=== PATIENT | male | born 1945 | race Caucasian/White ===

== ENCOUNTER 2018-05-02 15:42 | Outpatient (RCR) | payer MEDICARE, OTHER, SELFPAY | END 2018-05-11 08:59 | LOC: CR 15:42 | PROVIDERS: PCP Family Medicine; Visit Provider Family Medicine | DX: Z51.89 Encounter for other specified aftercare (principal); I25.2 Old myocardial infarction ==

== ENCOUNTER 2018-05-28 10:00 | Outpatient (RCR) | payer MEDICARE, OTHER, SELFPAY | END 2018-05-29 23:59 | disposition home or self-care (01) | LOC: CR 10:00 | PROVIDERS: PCP Family Medicine; Visit Provider Family Medicine | DX: I25.2 Old myocardial infarction (principal); Z51.89 Encounter for other specified aftercare | CPT/HCPCS: S9472 ==

== ENCOUNTER 2018-06-25 09:00 | Outpatient (RCR) | payer MEDICARE, OTHER, SELFPAY | END 2018-06-29 23:59 | disposition home or self-care (01) | LOC: CR 09:00 | PROVIDERS: PCP Family Medicine; Visit Provider Family Medicine | DX: I25.2 Old myocardial infarction (principal); Z51.89 Encounter for other specified aftercare | CPT/HCPCS: S9472 ==

== ENCOUNTER 2018-07-01 16:00 | Outpatient (REF) | payer MEDICARE, OTHER, SELFPAY ==
[2018-07-02 06:47] LABS: ALT 16 U/L (12-78); AST 16 U/L (15-37); Albumin 3.7 g/dL (3.4-5.0); Alkaline Phosphatase 84 U/L (46-116); Anion Gap 14.3 mmol/L (3-11); BUN 19 mg/dL (7-18); Bilirubin, Total 0.9 mg/dL (0.2-1.0); CO2 20.7 mmol/L (21.0-32.0); CREATININE 0.89 mg/dL (0.70-1.30); Calcium 8.5 mg/dL (8.5-10.1); Chloride 104 mmol/L (98-107); Cholesterol 86 mg/dL (50-200); Glucose 110 mg/dL (70-100); HDL Cholesterol 34 mg/dL (40-60); LDL CHOLESTEROL 40 mg/dL (<100); Potassium 3.6 mmol/L (3.5-5.1); Sodium 139 mmol/L (136-145); Total Protein 6.9 g/dL (6.4-8.2); Triglyceride 139 mg/dL (30-150)
[2018-07-03 11:48] LABS: Hepatitis C Ab w Rflx HCV PCR Negative (NEGAT)
== END 2018-07-01 16:20 ==
LOC: NCHCN 16:00
PROVIDERS: PCP Family Medicine; Visit Provider Internal Medicine
DX: R19.7 Diarrhea, unspecified (principal); E78.5 Hyperlipidemia, unspecified; I10 Essential (primary) hypertension
CPT/HCPCS: 80053; 80061; 83721; 86803

== ENCOUNTER 2018-07-21 13:06 | Outpatient (RCR) | payer MEDICARE, OTHER, SELFPAY | END 2018-07-29 23:59 | disposition home or self-care (01) | LOC: CR 13:06 | PROVIDERS: PCP Family Medicine; Visit Provider Family Medicine | DX: I25.2 Old myocardial infarction (principal); Z51.89 Encounter for other specified aftercare | CPT/HCPCS: S9472 ==

== ENCOUNTER 2018-08-22 08:00 | Outpatient (RCR) | payer MEDICARE, OTHER, SELFPAY | END 2018-08-29 23:59 | disposition home or self-care (01) | LOC: CR 08:00 | PROVIDERS: PCP Family Medicine; Visit Provider Family Medicine | DX: I25.2 Old myocardial infarction (principal); Z51.89 Encounter for other specified aftercare | CPT/HCPCS: S9472 ==

== ENCOUNTER 2019-12-28 09:37 | Outpatient (REF) | payer MEDICARE, OTHER, SELFPAY ==
[2019-12-28 23:06] LABS: ALT 37 U/L (16-63); AST 22 U/L (15-37); Albumin 3.7 g/dL (3.4-5.0); Alkaline Phosphatase 72 U/L (46-116); Anion Gap 7.9 mmol/L (3-11); BUN 17 mg/dL (7-18); Bilirubin, Total 1.3 mg/dL (0.2-1.0); CO2 27.1 mmol/L (21.0-32.0); CREATININE 0.83 mg/dL (0.70-1.30); Calcium 8.7 mg/dL (8.5-10.1); Calculated LDL 74 mg/dL (<100); Chloride 106 mmol/L (98-107); Cholesterol 138 mg/dL (<200); Glucose 85 mg/dL (74-106); HDL Cholesterol 52 mg/dL (40-60); Potassium 4.2 mmol/L (3.5-5.1); Sodium 141 mmol/L (136-145); Triglyceride 64 mg/dL (<150)
[2019-12-29 00:10] LABS: Total Protein 6.5 g/dL (6.4-8.2)
[2019-12-29 17:32] LABS: PSA, Screening 1.6 ng/mL (0.0-6.5)
== END 2019-12-28 09:57 ==
LOC: NCHCN 09:37
PROVIDERS: PCP Family Medicine; Visit Provider Family Medicine
DX: I10 Essential (primary) hypertension (principal); E78.5 Hyperlipidemia, unspecified; Z12.5 Encounter for screening for malignant neoplasm of prostate
CPT/HCPCS: 80053; 80061; 84153

== ENCOUNTER → 2020-10-28 11:27 | Outpatient (BNVA) | payer MEDICARE, OTHER, SELFPAY | PROVIDERS: PCP Family Medicine; Referring Provider Family Medicine; Visit Provider Physical Therapy Assistant | DX: Z12.11 Encounter for screening for malignant neoplasm of colon (principal); I10 Essential (primary) hypertension ==

== ENCOUNTER 2021-01-09 02:13 | Outpatient (CLI) | payer MEDICARE, OTHER, SELFPAY ==
[2021-01-09 11:06] LABS: Source Nasal/Nares
[2021-01-09 15:19] LABS: COVID-19 PCR Negative (Negative)
== END 2021-01-09 02:14 | disposition home or self-care (01) ==
LOC: LBO 02:13
PROVIDERS: PCP Family Medicine; Visit Provider Surgery
DX: Z01.818 Encounter for other preprocedural examination (principal); Z20.822 Contact with and (suspected) exposure to COVID-19
CPT/HCPCS: 87635

== ENCOUNTER 2021-01-11 09:45 | Day surgery (SDC) | payer MEDICARE, OTHER, SELFPAY ==
--- NOTE | 2021-01-11 06:45 | W.PREOPHP ---
Date of service: 01/11/21 Time of Service: 10:59 Assessment and Plan Assessment and plan (1) Encounter for colorectal cancer screening: Status: Acute Assessment and plan: The patient is here for Colonoscopy pre-op. His last screening was 10+ years ago, results unknown. He has no family history of colon cancer. He has not had any bowel habit changes. -Discussed colonoscopy bowel prep as well as the procedure. Discussed possible complications of the procedure to include bleeding, pain, perforation, missed small lesion/polyp, sore throat, aspiration and adverse reaction to the medications. Questions were answered to patient?s satisfaction. No guarantees were implied or given. 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 His last screening was reported to have been 10+ years ago in [place]. He denies a family history of colon cancer. He denies any changes in bowel habits including bloody or black tarry stools, abdominal pain, diarrhea or constipation. He denies constitutional symptoms. Denies use of marijuana or any other recreational or illegal drugs. He denies chest pain, palpitations, dyspnea or dyspnea with exertion. He has not used his nitro since 2019 at the time of his last NV. He denies prior history or family history of adverse reactions or complications with anesthesia. The patient denies any history of stroke, seizures, bleeding or clotting disorders. He has implanted metal in his left knee. There have been no changes in his health since he was seen. Review of Systems Cardiovascular Cardiovascular: Denies chest pain, Denies chest pain at rest, Denies irregular heart rhythm, Denies dyspnea and Denies dyspnea on exertion Respiratory Respiratory: Denies cough, Denies dyspnea and Denies dyspnea on exertion Gastrointestinal Gastrointestinal: Reports as per HPI Genitourinary Genitourinary: Denies dysuria, Denies urinary incontinence and Denies urinary urgency Endocrine Endocrine: Reports system reviewed and no additional complaints, except as documented Hematologic/Lymphatic Hematologic/Lymphatic: Denies easy bruising and Denies lymphadenopathy [facility] Medical History Actinic keratosis CAD (coronary artery disease) Diarrhea Erectile dysfunction Hearing loss, bilateral History of cigarette smoking History of diverticulosis History of non-ST elevation myocardial infarction (NSTEMI) f/u with cardiology 09/2020 Dr. Golden @ [facility] [place] Hydrocele, left Hyperlipidemia Hypertension Osteoarthritis Pain, joint, knee, right Surgical History (Updated 01/11/21 @ 09:55 by Juaquin Sharp) History of cardiac catheterization x1 History of colonoscopy (~08/24/03) Done at [facility] in [place], [place] History of knee replacement procedure of left knee Hx of tonsillectomy Social History Smoking/Tobacco Use Status: Never Smoking risk assessment performed?: Yes Alcohol Intake: current Alcohol Intake frequency: 0-2 drinks per day Alcohol type: beer and wine Drug use: Never Substance use type: does not use Do you feel safe at home: Yes Do you feel safe in your relationship?: Yes Meds Allergies and Home Medications Allergies Allergy/AdvReac Type Severity Reaction Status Date / Time avocado Allergy Intermediate GI upset Verified 01/11/21 09:58 Home Medications Medication Instructions Recorded Confirmed Type cholecalciferol (vitamin D3) 400 unit PO DAILY tab-cap 04/22/15 01/10/21 History [Vitamin D] aspirin 81 mg tablet,delayed 81 mg PO DAILY 10/13/20 01/10/21 History release atorvastatin 40 mg tablet 40 mg PO DAILY 10/13/20 01/11/21 History lisinopril 5 mg tablet 5 mg PO DAILY 10/13/20 01/11/21 History nitroglycerin 0.4 mg sublingual 0.4 mg SUBLINGUAL Q5M PRN 10/13/20 01/10/21 History tablet sildenafil 100 mg tablet 100 mg PO DAILY PRN 10/13/20 01/10/21 History Exam Const General: healthy appearing and comfortable Resp Effort & Inspection: normal respiratory effort Auscultation: clear to auscultation bilaterally Cardio Rate: regular rate Rhythm: regular rhythm Heart Sounds: no click, no gallops and no murmurs
--- NOTE | 2021-01-11 06:47 | W.COLOREPORT ---
Colonoscopy Report Date of procedure: 01/11/21 Pre-op diagnosis general: Colon Cancer Screening Post-op diagnosis procedure note: other (2 polyps and diverticulosis) Procedure: Colonoscopy with polypectomy Surgeon: Janell Levy Anesthesia Type: General:No Airway ([place] Taylor, ROXIE) Estimated blood loss (mL): 3 Pathology: other (cecal polyp, descending polyp) Complications: None Disposition: same day Indications: The patient is here for Colonoscopy pre-op. His last screening was 10+ years ago, results unknown. He has no family history of colon cancer. He has not had any bowel habit changes. -Discussed colonoscopy bowel prep as well as the procedure. Discussed possible complications of the procedure to include bleeding, pain, perforation, missed small lesion/polyp, sore throat, aspiration and adverse reaction to the medications. Questions were answered to patient?s satisfaction. No guarantees were implied or given. Prep: Miralax/Dulcolax Procedure Start Time: 11:10 Procedure End Time: 11:27 Retraction Time: 10 minutes Findings: 2 small sessile polyps diverticulosis Procedure Description: After informed consent was obtained the patient was taken to the procedure room and placed in a left decubitous position. Monitors were applied and a time out was done. The patients name, date of , procedure, allergies to medications and metal in their body was reviewed. The patient was then sedated. Once sedated and comfortable a rectal exam was done. External exam was normal. Internal exam revealed a normal sphincter tone and no palpable masses. The prostate felt smooth and slightly enlarged. The scope was then introduced and retro-flexed. No internal hemorrhoids, polyps or masses were identified on retro-flexion. The scope was then advanced to the cecum without difficulty. The ileocecal vlave and appendiceal orifice were identified. The prep was adequate. The scope was then slowly retracted over 10 minutes back into the rectum. Polyps were removed in the cecum and descending colon with cold forceps. There was moderate descending and sigmoid diverticulosis noted. The scope was removed and the patient was woken up and taken back to Same day surgery in stable condition. The patient tolerated the procedure well and there were no immediate complications. Follow up: The patient should follow up in 3-5 years unless they develop changes in bowel habits or other new gastrointestinal complaints.
--- NOTE | 2021-01-11 06:47 | W.PM.DSUDISC ---
Discharge Plan Disposition Patient Disposition: HOME Condition: Good Discharge Details Reason For Visit: Colonoscopy Attending Provider: Janell Levy Primary Care Provider: Amy Arango Home Meds and New Rx's Prescriptions: Continued cholecalciferol (vitamin D3) [Vitamin D3] 400 UNIT capsule 400 unit PO DAILY RF: 0 atorvastatin 40 mg tablet 40 mg PO DAILY RF: 0 lisinopril 5 mg tablet 5 mg PO DAILY RF: 0 sildenafil [Viagra] 100 mg tablet 100 mg PO DAILY PRNRF: 0 nitroglycerin [Nitrostat] 0.4 mg tablet, sublingual 0.4 mg sublingual Q5M PRNRF: 0 aspirin 81 mg tablet,delayed release (DR/EC) 81 mg PO DAILY RF: 0 Discharge Instructions Instructions: Diverticulosis (DC), Colorectal Polyps (DC) Additional Instructions: Findings: 2 small polyps diverticulosis Follow up: 3-5 years Please call if you develop: fevers >101.5 Nausea or Vomiting Abdominal pain that is not transient Rectal bleeding that is more then a tbsp A hard abdomen and inability to pass gas DAY SURGERY UNIT POST ENDOSCOPY INSTRUCTIONS Instructions for everyone who is given Anesthesia: For your safety, please do the following for the next 24 Hours: a. Do not drive or operate dangerous equipment b. Do not drink alcohol beverages or use any recreational drugs for the first 24 hours or while taking pain medications. The medications in your body may have a reaction that can be dangerous. c. Do not make any important decisions or sign any important papers 1. Generally there are no restrictions on your activity after a day or so has gone by, but you may feel a bit fatigued for a few days. 2. After you arrive home you may have a light meal and return to a normal diet as you can tolerate it without feeling sick to your stomach. 3. After surgery, you may feel pain or discomfort. This should be only transient, but if it persists please contact your doctor. 4. If there are any questions regarding the findings of your procedure, please feel free to contact your doctor. 6. If you are unable to contact your doctor with a problem, contact the hospital at [phone]. 7. Continue all your regular medications unless directed otherwise. I understand the above instructions and have no questions. Signature of Patient or Responsible Adult Escort Date/Time Name of Responsible Adult Escort Signature of Nurse Date/Time Activity:: Activity as Tolerated Diet:: high fiber diet Discharge Orders Discharge Orders: Discharge Order (Routine); Ordered 01/11/21 Ordered By: Janell Levy DS: Diagnosis Discharge Diagnosis (1) Encounter for colorectal cancer screening: Status: Acute
[2021-01-11 09:54] VITALS: BP 119/67; PULSE 65; RESP 16; TEMP 36.2; O2SAT 98
--- NOTE | 2021-01-11 10:14 | ANES.PREOP_ITS ---
General Info Date of Service Date Performed: 01/11/21 Height: 5 ft 6 in Weight: 82.5 kg Body Mass Index (BMI): 29.3 Surgical Procedure: Operation Date: 01/11/21 11:05 Proposed Procedures Side Surgeon p Colonoscopy Janell Levy MD Meds Allergies and Home Medications Allergies Allergy/AdvReac Type Severity Reaction Status Date / Time avocado Allergy Intermediate GI upset Verified 01/11/21 09:58 Home Medication Medication Instructions Recorded cholecalciferol (vitamin D3) 400 unit PO DAILY tab-cap 04/22/15 [Vitamin D] aspirin 81 mg tablet,delayed 81 mg PO DAILY 10/13/20 release atorvastatin 40 mg tablet 40 mg PO DAILY 10/13/20 lisinopril 5 mg tablet 5 mg PO DAILY 10/13/20 nitroglycerin 0.4 mg sublingual 0.4 mg SUBLINGUAL Q5M PRN 10/13/20 tablet sildenafil 100 mg tablet 100 mg PO DAILY PRN 10/13/20 Current Visit Medications: Current Medications Generic Name Dose Route Start Last Admin Trade Name Reyq PRN Reason Stop Dose Admin Hyoscyamine Sulfate 0.125 mg 01/11/21 06:48 Hyoscyamine 0.125 Mg Sl/Oral/Chew SL DIRECTED PRN Ringer's Solution 1,000 mls @ 80 mls/hr 01/11/21 06:00 IV 01/29/21 23:59 [facility]ION [facility] IV Miscellaneous Supplies 1 each 01/11/21 06:00 Iv Access IV 01/29/21 23:59 DIRECTED MICHELLE Ondansetron HCl 4 mg 01/11/21 06:48 Ondansetron 4 Mg/2 Ml Vial IVP Q4H PRN PRN Nausea / Vomiting Sodium Chloride 0 ml 01/11/21 06:00 Normal Saline Flush 10 Ml Syr IV 01/29/21 23:59 PRN PRN Sodium Chloride 0 ml 01/11/21 06:00 Normal Saline 10 Ml Vial IJ 01/29/21 23:59 DIRECTED PRN Sterile Water 0 ml 01/11/21 06:00 Water,Injection,Sterile 10 Ml Vial IJ 01/29/21 23:59 DIRECTED PRN PFSH Active Problems Active Problems: Problem Status Onset Code Sensorineural hearing loss of both ears H90.3 Encounter for colorectal cancer screening Z12.11, Z12.12 Medical History Medical History Actinic keratosis CAD (coronary artery disease) Diarrhea Erectile dysfunction Hearing loss, bilateral History of cigarette smoking History of diverticulosis History of non-ST elevation myocardial infarction (NSTEMI) f/u with cardiology 09/2020 Dr. Golden @ [facility] Hydrocele, left Hyperlipidemia Hypertension Osteoarthritis Pain, joint, knee, right Surgical History Surgical History (Updated 01/11/21 @ 09:55 by Juaquin Shapr) History of cardiac catheterization x1 History of colonoscopy (~08/24/03) Done at [facility] in [place], [place] History of knee replacement procedure of left knee Hx of tonsillectomy Tobacco Smoking/Tobacco Use Status: Never Alcohol Alcohol Intake: current Alcohol intake frequency: 0-2 drinks per day Alcohol type: beer and wine Substance Use Substance use: Never Substance use type: does not use Vital Signs and Lab Results Vital Signs Most Recent Vital Signs in EMR: Most Recent Vital Signs Temp Pulse Resp BP Pulse Ox 36.2 C L 65 16 119/67 98 01/11/21 09:54 01/11/21 09:54 01/11/21 09:54 01/11/21 09:54 01/11/21 09:54 Lab Results Blood Type / Crossmatch: No Data to Display Complete Blood Count: No Data to Display Complete Metabolic Panel: No Data to Display Liver Function Panel: No Data to Display Coagulation Panel: No Data to Display Cardiac Panel: No Data to Display Arterial Blood Gas: No Data to Display Venous Blood Gas: No Data to Display Pancreas Panel: No Data to Display Thyroid Panel: No Data to Display Infectious Disease: Coronavirus (COVID-19)(PCR) Negative (Negative) 01/09/21 09:42 01/09/21 Coronavirus 2019 Source Nasal/Nares 01/09/21 09:42 01/09/21 Blood Cultures: No Data to Display Toxicology Panel: No Data to Display Imaging and Studies Imaging and Studies Cardiac Catheterization Summary: 2 stents LAD 2019 Anesthesia Assessment and Plan Anesthesia History Personal History: No History of Anesthesia Complications Family History: No Family History of Anesthesia Complications Exercise Tolerance Exercise Tolerance: Metabolic Equivalents>4 Pertinent Negatives Pertinent Negatives: No Symptoms of GERD, No Major Cardiovascular Symptoms or Complaints, No Major Pulmonary Symptoms or Complaints and No History of CVA/TIA Cardiac & Pulmonary Exam Cardiac Exam: Normal S1/S2 Heart Sounds Pulmonary Exam: Clear Bilateral Breath Sounds Airway Exam Known Difficult Airway: No Mallampati Class: 2 Mouth Opening: Normal (> 3cm) Thyromental Distance: Greater than 3 cm Neck Range of Motion: Full ROM Neck Circumference: Normal Teeth Condition: Normal Dentition Tooth Numberin. Gold tooth/filling ASA Classification ASA Score: ASA 3 Emergency Case?: No NPO Status NPO Status: NPO Clears >2 hours, Solids >8 hours Anesthesia Plan Resuscitation Status: Full Code Anesthesia Technique: General Anesthesia Airway Planned: Natural Airway Monitors Used: Standard Monitors
[2021-01-11] MEDS: Lactated Ringers 1,000 ML 80 ML IV (10:20)
--- NOTE | 2021-01-11 10:20 | W.ANESPRE ---
General Info Date of Service Date Performed: 01/11/21 Height: 5 ft 6 in Weight: 82.5 kg Body Mass Index (BMI): 29.3 Surgical Procedure: Operation Date: 01/11/21 11:05 Proposed Procedures Side Surgeon p Colonoscopy Janell Levy MD Meds Allergies and Home Medications Allergies Allergy/AdvReac Type Severity Reaction Status Date / Time avocado Allergy Intermediate GI upset Verified 01/11/21 09:58 Home Medication Medication Instructions Recorded cholecalciferol (vitamin D3) 400 unit PO DAILY tab-cap 04/22/15 [Vitamin D] aspirin 81 mg tablet,delayed 81 mg PO DAILY 10/13/20 release atorvastatin 40 mg tablet 40 mg PO DAILY 10/13/20 lisinopril 5 mg tablet 5 mg PO DAILY 10/13/20 nitroglycerin 0.4 mg sublingual 0.4 mg SUBLINGUAL Q5M PRN 10/13/20 tablet sildenafil 100 mg tablet 100 mg PO DAILY PRN 10/13/20 Current Visit Medications: Current Medications Generic Name Dose Route Start Last Admin Trade Name Reyq PRN Reason Stop Dose Admin Hyoscyamine Sulfate 0.125 mg 01/11/21 06:48 Hyoscyamine 0.125 Mg Sl/Oral/Chew SL DIRECTED PRN Ringer's Solution 1,000 mls @ 80 mls/hr 01/11/21 06:00 IV 01/29/21 23:59 INFUSION [facility] IV Miscellaneous Supplies 1 each 01/11/21 06:00 Iv Access IV 01/29/21 23:59 DIRECTED MICHELLE Ondansetron HCl 4 mg 01/11/21 06:48 Ondansetron 4 Mg/2 Ml Vial IVP Q4H PRN PRN Nausea / Vomiting Sodium Chloride 0 ml 01/11/21 06:00 Normal Saline Flush 10 Ml Syr IV 01/29/21 23:59 PRN PRN Sodium Chloride 0 ml 01/11/21 06:00 Normal Saline 10 Ml Vial IJ 01/29/21 23:59 DIRECTED PRN Sterile Water 0 ml 01/11/21 06:00 Water,Injection,Sterile 10 Ml Vial IJ 01/29/21 23:59 DIRECTED PRN PFSH Active Problems Active Problems: Problem Status Onset Code Sensorineural hearing loss of both ears H90.3 Encounter for colorectal cancer screening Z12.11, Z12.12 Medical History Medical History Actinic keratosis CAD (coronary artery disease) Diarrhea Erectile dysfunction Hearing loss, bilateral History of cigarette smoking History of diverticulosis History of non-ST elevation myocardial infarction (NSTEMI) f/u with cardiology 09/2020 Dr. Golden @ [facility] Hydrocele, left Hyperlipidemia Hypertension Osteoarthritis Pain, joint, knee, right Surgical History Surgical History (Updated 01/11/21 @ 09:55 by Juaquin Sharp) History of cardiac catheterization x1 History of colonoscopy (~08/24/03) Done at [facility] in [place], [place] History of knee replacement procedure of left knee Hx of tonsillectomy Tobacco Smoking/Tobacco Use Status: Never Alcohol Alcohol Intake: current Alcohol intake frequency: 0-2 drinks per day Alcohol type: beer and wine Substance Use Substance use: Never Substance use type: does not use Vital Signs and Lab Results Vital Signs Most Recent Vital Signs in EMR: Most Recent Vital Signs Temp Pulse Resp BP Pulse Ox 36.2 C L 65 16 119/67 98 01/11/21 09:54 01/11/21 09:54 01/11/21 09:54 01/11/21 09:54 01/11/21 09:54 Lab Results Blood Type / Crossmatch: No Data to Display Complete Blood Count: No Data to Display Complete Metabolic Panel: No Data to Display Liver Function Panel: No Data to Display Coagulation Panel: No Data to Display Cardiac Panel: No Data to Display Arterial Blood Gas: No Data to Display Venous Blood Gas: No Data to Display Pancreas Panel: No Data to Display Thyroid Panel: No Data to Display Infectious Disease: Coronavirus (COVID-19)(PCR) Negative (Negative) 01/09/21 09:42 01/09/21 Coronavirus 2019 Source Nasal/Nares 01/09/21 09:42 01/09/21 Blood Cultures: No Data to Display Toxicology Panel: No Data to Display Anesthesia Assessment and Plan Anesthesia History Personal History: No History of Anesthesia Complications Family History: No Family History of Anesthesia Complications Airway Exam Known Difficult Airway: No Mallampati Class: 2 Mouth Opening: Normal (> 3cm) Thyromental Distance: Greater than 3 cm Neck Range of Motion: Full ROM Neck Circumference: Normal Teeth Condition: Normal Dentition
[2021-01-11 10:31] VITALS: BMI 29.3
--- NOTE | 2021-01-11 11:16 | BOWEL_PTH ---
PATIENT: Michael Smith LOC: [facility] U#:[id number] AGE/SX: 75/M ROOM: RE01/11/[address]: Janell Levy MD : 1945 BED: DIS: 01/11/2021 SPEC #: [id number] RECD: 01/11/21 12:56 STATUS: MURPHY REQ #: [id number] HAZEL: 01/11/21 11:[address]: Janell Levy DEPT: Surgical Specimen RECD BY: Bettye Altman ENTERED: 01/11/21 12:57 SP TYPE: Bowel OTHR DR: Amy Arango Tissues: 1 - BIOPSY BOWEL 2 - BIOPSY BOWEL Procedures: GROSS AND MICRO LEVEL 4 Comments: [id number]
[2021-01-11 11:42] VITALS: BP 104/53; PULSE 83; RESP 16; TEMP 36.6; O2SAT 95
[2021-01-11 12:20] VITALS: BP 104/53; PULSE 64; RESP 16; TEMP 36.2; O2SAT 97
--- NOTE | 2021-01-11 12:47 | W.ANESPOSTOP ---
Postoperative Evaluation Date, Time and Location Date Performed: 01/11/21 Time Performed: 12:47 Patient Location: Day Surgery Unit Vital Signs Most Recent Imported Vital Signs: Most Recent Vital Signs Temp Pulse Resp BP Pulse Ox 36.2 C L 64 16 104/53 L 97 01/11/21 12:20 01/11/21 12:20 01/11/21 12:20 01/11/21 12:20 01/11/21 12:20 Pain Score Most Recent Pain Score: Most Recent Pain Score Pain Level 2 01/11/21 12:20 Assessment Mental Status: Awake (Alert & Oriented to Patient Baseline) Airway and Respiratory Function: Patent airway with normal (patient baseline) respiratory exam Cardiovascular Function: Hemodynamically Stable Hydration Status: Adequately Hydrated Nausea & Vomiting: No Nausea or Vomiting Pain: Pt. Denies Any Pain Peripheral Nerve Block: Patient did not receive a nerve block
== END 2021-01-11 12:56 | disposition home or self-care (01) ==
LOC: SUR 09:46
PROVIDERS: PCP Family Medicine; Visit Provider Surgery
PROC: 0DJD8ZZ Inspection of Lower Intestinal Tract, Via Natural or Artificial Opening Endoscopic (ICD-10-PCS; CPT 45378; principal; 2021-01-11 11:00)
DX: Z12.11 Encounter for screening for malignant neoplasm of colon (principal); I10 Essential (primary) hypertension; I25.10 Atherosclerotic heart disease of native coronary artery without angina pectoris; D12.0 Benign neoplasm of cecum; K57.30 Diverticulosis of large intestine without perforation or abscess without bleeding; D12.4 Benign neoplasm of descending colon
CPT/HCPCS: 45380; 88305; J2001

== ENCOUNTER 2021-02-13 08:58 | Outpatient (REF) | payer MEDICARE, OTHER, SELFPAY ==
[2021-02-13 16:14] LABS: HCT 44.5 % (40.0-50.0); HGB 14.8 g/dL (13.5-17.5); MCH 30.3 pg (27.0-33.0); MCHC 33.3 % (32.0-36.0); MPV 11.9 fL (8.0-11.0); Platelet Count 288 10^3/uL (130-400); RBC 4.89 10^6/uL (4.36-5.78); RDW 12.7 % (11.8-14.1); RDW-SD 42.5 fL; WBC 7.44 10^3/uL (4.4-10.8)
[2021-02-13 17:30] LABS: ALT 32 U/L (16-63); AST 20 U/L (15-37); Albumin 3.8 g/dL (3.4-5.0); Alkaline Phosphatase 71 U/L (46-116); Anion Gap 8.4 mmol/L (3-11); BUN 15 mg/dL (7-18); Bilirubin, Total 0.9 mg/dL (0.2-1.0); CO2 29.6 mmol/L (21.0-32.0); CREATININE 0.9 mg/dL (0.70-1.30); Calcium 8.9 mg/dL (8.5-10.1); Calculated LDL 78 mg/dL (<100); Chloride 106 mmol/L (98-107); Cholesterol 149 mg/dL (<200); Glucose 91 mg/dL (74-106); HDL Cholesterol 58 mg/dL (40-60); Potassium 4.3 mmol/L (3.5-5.1); Sodium 144 mmol/L (136-145); Total Protein 6.7 g/dL (6.4-8.2); Triglyceride 68 mg/dL (<150)
[2021-02-13 19:34] LABS: Vitamin D 25 Total 32.3 ng/mL (30-100)
== END 2021-02-13 08:59 | disposition home or self-care (01) ==
LOC: NCHCN 08:58
PROVIDERS: PCP Family Medicine; Visit Provider Family Medicine
DX: I10 Essential (primary) hypertension (principal); E78.5 Hyperlipidemia, unspecified; E55.9 Vitamin D deficiency, unspecified
CPT/HCPCS: 80053; 80061; 82306; 85027

== ENCOUNTER 2022-07-18 14:45 | Outpatient (REF) | payer MEDICARE, OTHER, SELFPAY ==
[2022-07-18 22:17] LABS: CREATININE 0.9 mg/dL (0.70-1.30); Estimated GFR 88.51 (mL/min/1.73m2)
== END 2022-07-18 14:46 | disposition home or self-care (01) ==
LOC: NCHCN 14:45
PROVIDERS: PCP Family Medicine; Visit Provider Family Medicine
DX: I10 Essential (primary) hypertension (principal); Z01.818 Encounter for other preprocedural examination
CPT/HCPCS: 82565

== ENCOUNTER 2022-09-07 12:50 | Outpatient (REF) | payer MEDICARE, SELFPAY ==
[2022-09-07 14:31] LABS: ALT 29 U/L (16-63); AST 19 U/L (15-37); Albumin 3.5 g/dL (3.4-5.0); Alkaline Phosphatase 69 U/L (46-116); BUN 18 mg/dL (7-18); Bilirubin, Total 1.1 mg/dL (0.2-1.0); CREATININE 0.8 mg/dL (0.70-1.30); Calcium 8.8 mg/dL (8.5-10.1); Calculated LDL 72 mg/dL (<100); Chloride 106 mmol/L (98-107); Cholesterol 143 mg/dL (<200); Estimated GFR 91.72 (mL/min/1.73m2); Glucose 96 mg/dL (74-106); HDL Cholesterol 58 mg/dL (40-60); Potassium 4.3 mmol/L (3.5-5.1); Sodium 140 mmol/L (136-145); TSH (W/Ref FT4) 1.52 uIU/mL (0.36-3.74); Total Protein 6.5 g/dL (6.4-8.2); Triglyceride 65 mg/dL (<150)
[2022-09-07 14:47] LABS: Vitamin D 25 Total 30.9 ng/mL (30-100)
== END 2022-09-07 12:51 | disposition home or self-care (01) ==
LOC: NCHCN 12:50
PROVIDERS: PCP Family Medicine; Visit Provider Family Medicine
DX: E78.5 Hyperlipidemia, unspecified (principal); E55.9 Vitamin D deficiency, unspecified; I10 Essential (primary) hypertension
CPT/HCPCS: 80053; 80061; 82306; 84443

== ENCOUNTER 2022-09-26 10:02 | Emergency (ER) | payer MEDICARE, SELFPAY ==
[2022-09-26 10:06] VITALS: BP 140/90; PULSE 49; RESP 16; TEMP 36.6; O2SAT 99
--- NOTE | 2022-09-26 10:21 | DI.CT_ITS ---
Exam(s) CT ABDOMEN PELVIS CTA EXAM: CT ABDOMEN PELVIS CTA CLINICAL HISTORY: LLQ pain, eval for divertic, AAA, mesenteric ische. TECHNIQUE: Imaging Protocol: Axial CT angiography was performed with multi-slice acquisition and m ulti-planar and/or 3D reconstructions. CONTRAST MATERIAL: Intravenous: Omnipaque 350 Contrast volume:100mL Oral: No COMPARISON: No exams were available for comparison FINDINGS: ABDOMEN AND PELVIS: Abdomen: Celiac axis/mesenteric arteries: No evidence of occlusion or significant stenosis. Mild atheroscleros is at the origin of the superior mesenteric artery. Renal Arteries: No evidence of occlusion or significant stenosis. There is a single renal artery perf using each kidney. Aorta: No evidence of occlusion or significant stenosis. No aneurysm or dissection. Atherosclerosis. Pelvis: Iliac Arteries: No evidence of occlusion or significant stenosis. Atherosclerosis. Common Femoral Arteries: No evidence of occlusion or significant stenosis. Atherosclerosis. ABDOMEN: Lung bases: There is a small hiatal hernia. There are 2 2 mm nodules at the periphery of the right l ower lobe. Liver: Normal density. No measurable mass. Portal, Superior Mesenteric, and Splenic Veins: Unremarkable. Gallbladder and Biliary Tract: Cholelithiasis. No biliary ductal dilatation. Pancreas: Normal density, no abnormal calcifications or inflammatory process. Spleen: Normal. Adrenals: No masses seen. Kidneys: Normal size, contour and axis. No radiodense stones or obstructive uropathy. No masses seen. Bowel: No obstruction or bowel wall thickening. There is diverticulosis of the colon, but no evidence of acute diverticulitis. There is no evidence of appendicitis. Peritoneal Cavity: No ascites, collection or mesenteric inflammatory response. No free air. Lymph Nodes: Within normal limits. Bones: Within normal limits for the patient's age. There is grade 1 anterolisthesis of L4 on L5. Soft Tissues: There is a small fat containing umbilical hernia. There is a fat containing left ingui nal hernia. PELVIS: Bladder: Symmetric distention, no gross wall thickening. Reproductive Organs: Unremarkable as visualized. Lymph Nodes: Within normal limits. Bones: Within normal limits. IMPRESSION: 1. Colonic diverticulosis without evidence of acute diverticulitis. 2. Cholelithiasis without CT evidence to suggest acute cholecystitis. 3. No evidence of arterial aneurysm or dissection. 4. The superior mesenteric vein appears unremarkable. 5. Two 2 mm nodules in the periphery of the right lower lobe. In low risk patients, no follow-up is recommended. In high risk patients (history of smoking or other risk factors, optional CT scan of th e chest in 12 months may be obtained. (Lamar et al, 2017). 6. Findings were discussed with Dr. Nolasco at 12:28 p.m. on 09/26/2022. RADIATION DOSE DELIVERED: 1,599.41mGy.cm Total DLP DATA REPOSITORY: All CT scans at this facility are submitted to the National Radiology Data Registry (NRDR) Dose Index Registry (DIR) with the [employer] (ACR). RADIATION OPTIMIZATION: All CT scans at this facility use at least one of these dose optimization te chniques: automated exposure control; mA and/or kV adjustment per patient size (includes targeted exa ms where dose is matched to clinical indication); or iterative reconstruction.
--- NOTE | 2022-09-26 10:25 | ED.GENADUL_ITS ---
Discharge Plan Disposition Patient Disposition: Home Condition: Good Discharge Details Chief Complaint: Abd Prob Clinical Impression: LLQ abdominal pain, Incidental pulmonary nodule Primary Care Provider: Amy Arango ED Provider: Jae Nolasco Home Meds and New Rx's Prescriptions: No Action cholecalciferol (vitamin D3) [Vitamin D3] 400 UNIT capsule 400 unit PO DAILY atorvastatin 40 mg tablet 40 mg PO DAILY lisinopril 5 mg tablet 5 mg PO DAILY sildenafil [Viagra] 100 mg tablet 100 mg PO DAILY PRN Rx Instructions: administer 30 minutes to 4 hours before activity nitroglycerin [Nitrostat] 0.4 mg tablet, sublingual 0.4 mg sublingual Q5M PRN Rx Instructions: do not exceed 3 doses per episode aspirin 81 mg tablet,delayed release (DR/EC) 81 mg PO DAILY Discharge Instructions Instructions: Abdominal Pain (ED) Additional Instructions: At this time your laboratory work-up is reassuring. Your CAT scan shows no evidence of significant blood clots, problems with your vessels, or evidence of diverticulitis. Please take Tylenol as needed for pain. Of noted 2 small pulmonary nodules were seen in your lungs. These are incidental findings. Please follow-up with repeat imaging and your primary care provider regards to this. Optional CAT scan in the next 12 months would be very reasonable. If you notice any worsening of your symptoms, or any new symptoms such as vomiting, diarrhea, fever, chills, shortness of breath, chest pain, numbness, weakness, or fainting , please return immediately to the emergency department for reevaluation. Please follow up with your primary care provider as soon as possible for reassessment and reevaluation. As always, it was a pleasure participating in your medical care today. Referrals: Amy Arango [Primary Care Provider] - Medical Decision Making 77-year-old male with a past medical history of tubular adenoma of the colon, coronary artery disease with stenting, diverticulosis, high cholesterol, hypertension, left-sided knee replacement, tonsillectomy, who presents today for evaluation of left lower quadrant abdominal pain. 1 week ago the patient developed mild gradual onset pain in his left lower quadrant. It continued for a day, and then resolved on its own. However today began again at 8 AM and gradually worsened. He describes it as mild and achy. He denies any fever, chills, vomiting, diarrhea, dysuria. Pain is made better when he lies still or lies down. Pain is made worse when he stands up. He denies any trauma. He denies any other complaints at this time. No other modifying factors. Exam demonstrates well-appearing male, mild achiness in left lower quadrant, no significant reproducible tenderness evidence of an acute surgical abdomen. No guarding or rebound. Testicles and genital and groin area are unremarkable. No palpable aneurysm. Pulses intact. Differential size for diverticulitis versus kidney stone. Differential does include AAA but this is notably less likely. We will get a urinalysis, get CT imaging to evaluate for concerning etiology. Monitor closely and reassess process. Patient does not want anything for pain medication at this time. 12:38 PM Laboratory work-up is unremarkable, CT scan is negative for acute process. 2 small pulmonary nodules are noted. Cholelithiasis but no evidence of cholecystitis. Patient feels well and feels comfortable going home. Potential for groin strain. No evidence of diverticulitis on imaging. No indication for antibiotics. Recommend NSAIDs at home and close monitoring of symptoms. I have extensively reviewed the treatment plan and discharge instructions with the patient and their family. I have addressed all patient concerns at this time. The patient and family was made aware of what symptoms to monitor for that would warrant a return to the emergency department. Discussed the plan with the patient and family, they demonstrate verbal understanding and agreement with our assessment and plan at this time. The documentation in this chart was dictated using 365 [employer] dictation software. Please excuse any dictation errors. FINDINGS: ABDOMEN AND PELVIS: Abdomen: Celiac axis/mesenteric arteries: No evidence of occlusion or significant stenosis. Mild atherosclerosis at the origin of the superior mesenteric artery. Renal Arteries: No evidence of occlusion or significant stenosis. There is a single renal artery perfusing each kidney. Aorta: No evidence of occlusion or significant stenosis. No aneurysm or dissection. Atherosclerosis. Pelvis: Iliac Arteries: No evidence of occlusion or significant stenosis. Atherosclerosis. Common Femoral Arteries: No evidence of occlusion or significant stenosis. Atherosclerosis. ABDOMEN: Lung bases: There is a small hiatal hernia. There are 2 2 mm nodules at the periphery of the right lower lobe. Liver: Normal density. No measurable mass. Portal, Superior Mesenteric, and Splenic Veins: Unremarkable. Gallbladder and Biliary Tract: Cholelithiasis. No biliary ductal dilatation. Pancreas: Normal density, no abnormal calcifications or inflammatory process. Spleen: Normal. Adrenals: No masses seen. Kidneys: Normal size, contour and axis. No radiodense stones or obstructive uropathy. No masses seen. Bowel: No obstruction or bowel wall thickening. There is diverticulosis of the colon, but no evidence of acute diverticulitis. There is no evidence of appendicitis. Peritoneal Cavity: No ascites, collection or mesenteric inflammatory response. No free air. Lymph Nodes: Within normal limits. Bones: Within normal limits for the patient's age. There is grade 1 anterolisthesis of L4 on L5. Soft Tissues: There is a small fat containing umbilical hernia. There is a fat containing left inguinal hernia. PELVIS: Bladder: Symmetric distention, no gross wall thickening. Reproductive Organs: Unremarkable as visualized. Lymph Nodes: Within normal limits. Bones: Within normal limits. IMPRESSION: 1. Colonic diverticulosis without evidence of acute diverticulitis. 2. Cholelithiasis without CT evidence to suggest acute cholecystitis. 3. No evidence of arterial aneurysm or dissection. 4. The superior mesenteric vein appears unremarkable. 5. Two 2 mm nodules in the periphery of the right lower lobe. In low risk patients, no follow-up is recommended. In high risk patients (history of smoking or other risk factors, optional CT scan of the chest in 12 months may be obtained. (Lamar et al, 2017). 6. Findings were discussed with Dr. Nolasco at 12:28 p.m. on 09/26/2022. HPI General Date/Time Provider Initiated Documentation: 09/26/22 10:05 . HPI Narrative: 77-year-old male with a past medical history of tubular adenoma of the colon, coronary artery disease with stenting, diverticulosis, high cholesterol, hypertension, left-sided knee replacement, tonsillectomy, who presents today for evaluation of left lower quadrant abdominal pain. 1 week ago the patient developed mild gradual onset pain in his left lower quadrant. It continued for a day, and then resolved on its own. However today began again at 8 AM and gradually worsened. He describes it as mild and achy. He denies any fever, chills, vomiting, diarrhea, dysuria. Pain is made better when he lies still or lies down. Pain is made worse when he stands up. He denies any trauma. He denies any other complaints at this time. No other modifying factors. Related Data Home Medications Medication Instructions Recorded Confirmed cholecalciferol (vitamin D3) 10 400 unit PO DAILY 04/22/15 09/26/22 mcg (400 unit) capsule (Vitamin D3) aspirin 81 mg tablet,delayed 81 mg PO DAILY 10/13/20 09/26/22 release atorvastatin 40 mg tablet 40 mg PO DAILY 10/13/20 09/26/22 lisinopril 5 mg tablet 5 mg PO DAILY 10/13/20 09/26/22 nitroglycerin 0.4 mg sublingual 0.4 mg sublingual Q5M PRN 10/13/20 09/26/22 tablet (Nitrostat) sildenafil 100 mg tablet (Viagra) 100 mg PO DAILY PRN 10/13/20 09/26/22 Allergies Allergy/AdvReac Type Severity Reaction Status Date / Time avocado AdvReac Intermediate GI upset Verified 09/26/22 10:56 General Stated Complaint: Abd Prob DILIA: 3 Review of Systems All systems reviewed & are unremarkable except as noted in HPI and below PFSH All Active Problems (Updated 09/26/22 @ 12:37 by Jae Nolasco DO) LLQ abdominal pain (Acute) Incidental pulmonary nodule (Acute) Tubular adenoma of colon (Acute) Sensorineural hearing loss of both ears (Acute) Encounter for colorectal cancer screening (Acute) Medical History Actinic keratosis CAD (coronary artery disease) Diarrhea Erectile dysfunction Hearing loss, bilateral History of cigarette smoking History of diverticulosis History of non-ST elevation myocardial infarction (NSTEMI) f/u with cardiology 09/2020 [place]. [place] [facility] [place], left Hyperlipidemia Hypertension Osteoarthritis Pain, joint, knee, right Surgical History History of cardiac catheterization x1 History of colonoscopy (~08/24/03) Done at [facility] in [place], [place] History of colonoscopy (~12/2020) History of knee replacement procedure of left knee Hx of tonsillectomy Social History Smoking/Tobacco Use Status: Never Smoking risk assessment performed?: Yes Alcohol Intake: current Alcohol Intake frequency: 0-2 drinks per day Alcohol type: beer and wine Drug use: Never Substance use type: does not use Do you feel safe at home: Yes Do you feel safe in your relationship?: Yes Exam Narrative Exam Narrative: 1.Const: Well-nourished, Well-developed, appearing stated age 2.Eyes: PERRL, no conjunctival injection, and symmetrical lids. 3.ENT: Atraumatic external nose and ears. Moist MM. Neck: Symmetric, trachea midline, No thyromegaly. 4.CVS: +S1/S2, No murmurs or gallops. Peripheral pulses 2+ and equal in all extremities. Brisk capillary refill in all extremities. 5.RESP: Unlabored respiratory effort. Clear to auscultation bilaterally. No wheezes rales or rhonchi 6.GI: Soft, Nontender/Nondistended, No hepatosplenomegaly. No guarding or rebound. No palpable mass. No inguinal hernia, no testicular pain or tenderness. Minimal subjective achiness in the left lower quadrant worsened significantly by palpation. 7.MSK: Normocephalic/Atraumatic, Extremities w/o deformity or ttp No cyanosis or clubbing, Normal movement of all extremities 8.Skin: Warm, Dry. No rashes or lesions. 9.Neuro: web applications administrator II-XII grossly intact. Sensation grossly intact, no focal neurologic deficits. 10.Psych: (AAO) x3. Appropriate mood and affect Course Vital Signs Vital signs: Vital Signs Temperature 36.6 C 09/26/22 10:06 Pulse 49 L 09/26/22 10:06 Respiratory Rate 16 09/26/22 10:06 Blood Pressure 140/90 09/26/22 10:06 Pulse Oximetry 99 09/26/22 10:06 Temperature 36.6 C 09/26/22 10:06 Temperature Source Oral 09/26/22 10:06 Pulse 49 L 09/26/22 10:06 Respiratory Rate 16 09/26/22 10:06 Blood Pressure 140/90 09/26/22 10:06 Blood Pressure Position Sitting 09/26/22 10:06 Pulse Oximetry 99 09/26/22 10:06 Oxygen Delivery Method Room Air 09/26/22 10:06 Oxygen Flow Rate 0 09/26/22 10:06 Pain Level 4 09/26/22 10:06
[2022-09-26 10:39] LABS: Abs Immature Grans 0.03 10^3/uL (0.0-0.06); Absolute Basophil Count 0.07 10^3/uL (0.0-0.2); Absolute Eosinophil Count 0.44 10^3/uL (0.0-0.7); Absolute Lymphocyte Count 2.07 10^3/uL (1.2-3.4); Absolute Monocyte Count 0.58 10^3/uL (0.1-0.8); Absolute Neutrophil Count 4.44 10^3/uL (1.2-6.7); Basophils % 0.9; Eosinophils % 5.8; HCT 43.5 % (40.0-50.0); HGB 14.7 g/dL (13.5-17.5); Immature Grans % 0.4; Lymphocytes % 27.1; MCH 30.6 pg (27.0-33.0); MCHC 33.8 % (32.0-36.0); MCV 90 fL (80-95); Monocytes % 7.6; Neutrophils % 58.2; Platelet Count 275 10^3/uL (130-400); RBC 4.81 10^6/uL (4.36-5.78); RDW-SD 43.5 fL; WBC 7.63 10^3/uL (4.4-10.8)
[2022-09-26 10:50] LABS: Bilirubin Negative (Negative); Blood Trace-intact (Negative); Clarity Clear (Clear); Glucose Negative (Negative); Ketones Negative (Negative); Leukocyte Esterase Negative (Negative); Nitrite Negative (Negative); Specific Gravity 1.015 (1.005-1.025); Urobilinogen 0.2 mg/dL (Up to 0.2)
[2022-09-26 10:53] LABS: ALT 26 U/L (16-63); AST 18 U/L (15-37); Albumin 3.4 g/dL (3.4-5.0); Alkaline Phosphatase 68 U/L (46-116); Anion Gap 6.4 mmol/L (3-11); BUN 15 mg/dL (7-18); Bilirubin, Total 1.2 mg/dL (0.2-1.0); CO2 28.6 mmol/L (21.0-32.0); CREATININE 0.9 mg/dL (0.70-1.30); Calcium 8.6 mg/dL (8.5-10.1); Chloride 107 mmol/L (98-107); Estimated GFR 88.51 (mL/min/1.73m2); Glucose 100 mg/dL (74-106); Potassium 4.2 mmol/L (3.5-5.1); Sodium 142 mmol/L (136-145); Total Protein 6.7 g/dL (6.4-8.2)
[2022-09-26 11:03] LABS: Bacteria Negative HPF (Negative); Epithelial Cells Negative HPF (Negative); WBC 0-2 HPF (0-5)
[2022-09-26 11:04] LABS: C & S Indicated? No; Crystals Negative HPF (Negative); Mucus Negative (Negative)
[2022-09-26] MEDS: Normal Saline - Diluent 50 ML VIAL IJ (11:38)
[2022-09-26] MEDS: Normal Saline Flush 10 ML SYR IVP (11:39)
[2022-09-26] MEDS: Omnipaque 350 MG/ML 500 ML BTL-Imaging package IJ (11:40)
[2022-09-26 11:58] VITALS: BP 140/66; PULSE 50; RESP 16; O2SAT 99
== END 2022-09-26 12:47 | disposition home or self-care (01) ==
PROVIDERS: Emergency Provider Student in an Organized Health Care Education/Training Program; PCP Family Medicine
DX: R10.32 Left lower quadrant pain (principal); R91.8 Other nonspecific abnormal finding of lung field; K80.20 Calculus of gallbladder without cholecystitis without obstruction; I25.10 Atherosclerotic heart disease of native coronary artery without angina pectoris; I25.2 Old myocardial infarction; I10 Essential (primary) hypertension; E78.5 Hyperlipidemia, unspecified; Z79.82 Long term (current) use of aspirin; Z79.899 Other long term (current) drug therapy; Z95.5 Presence of coronary angioplasty implant and graft
CPT/HCPCS: 36415; 80053; 99285; 74174; 81003; 81015; 85025; 99283; 99284

== ENCOUNTER → 2022-11-08 01:55 | Outpatient (CLI) | payer MEDICARE, SELFPAY ==
--- NOTE | 2022-11-08 | DI.DEXA_ITS ---
Exam(s) XR DEXA BONE DENSITY W/WO WHITNEY EXAM: XR DEXA BONE DENSITY W/WO WHITNEY CLINICAL HISTORY: OSTEOPOROSIS, M81.0, WELL ADULT PREVENTATIVE CARE, Z00.00 TECHNIQUE: COMPARISON: No exams were available for comparison FINDINGS: Lateral Spine Image: Unremarkable. No compression deformities identified. Left hip: Total T-Score: -1.0 Total Z-Score: -0.1 T- and Z-scores: Within normal limits. Lumbar Spine: Total T-Score: 1.7 Total Z-Score: 2.8 T- and Z-scores: Within normal limits. IMPRESSION: No evidence of osteoporosis.
== END ==
PROVIDERS: PCP Family Medicine; Visit Provider Family Medicine
DX: Z13.820 Encounter for screening for osteoporosis; M81.0 Age-related osteoporosis without current pathological fracture
CPT/HCPCS: 77080

== ENCOUNTER 2023-09-10 19:04 | Outpatient (REF) | payer MEDICARE, SELFPAY ==
[2023-09-10 15:28] LABS: HCT 43.4 % (40.0-50.0); HGB 14.6 g/dL (13.5-17.5); MCH 30.9 pg (27.0-33.0); MCHC 33.6 % (32.0-36.0); MCV 92 fL (80-95); MPV 12.1 fL (8.0-11.0); Platelet Count 310 10^3/uL (130-400); RBC 4.73 10^6/uL (4.36-5.78); RDW 12.8 % (11.8-14.1); RDW-SD 43.5 fL; WBC 8.81 10^3/uL (4.4-10.8)
[2023-09-10 16:39] LABS: ALT 31 U/L (16-63); AST 22 U/L (15-37); Albumin 3.6 g/dL (3.4-5.0); Alkaline Phosphatase 78 U/L (46-116); BUN 16 mg/dL (7-18); Bilirubin, Total 0.9 mg/dL (0.2-1.0); CREATININE 0.9 mg/dL (0.70-1.30); Calcium 9.4 mg/dL (8.5-10.1); Calculated LDL 46 mg/dL (<100); Chloride 106 mmol/L (98-107); Cholesterol 129 mg/dL (<200); Estimated GFR 87.96 (mL/min/1.73m2); Glucose 88 mg/dL (74-106); HDL Cholesterol 67 mg/dL (40-60); Potassium 4.4 mmol/L (3.5-5.1); Sodium 142 mmol/L (136-145); Total Protein 6.6 g/dL (6.4-8.2); Triglyceride 81 mg/dL (<150)
== END 2023-09-10 19:05 | disposition home or self-care (01) ==
LOC: NCHCN 19:04
PROVIDERS: PCP Family Medicine; Visit Provider Family Medicine
DX: I10 Essential (primary) hypertension (principal); Z00.00 Encounter for general adult medical examination without abnormal findings; E78.5 Hyperlipidemia, unspecified
CPT/HCPCS: 80053; 80061; 85027

== ENCOUNTER 2024-09-21 15:19 | Outpatient (REF) | payer MEDICARE, SELFPAY ==
[2024-09-21 16:29] LABS: ALT 32 U/L (16-63); AST 24 U/L (15-37); Albumin 3.5 g/dL (3.4-5.0); Alkaline Phosphatase 82 U/L (46-116); Anion Gap 7.2 mmol/L (3-11); BUN 16 mg/dL (7-18); Bilirubin, Total 1.1 mg/dL (0.2-1.0); CO2 26.8 mmol/L (21.0-32.0); Calculated LDL 58 mg/dL (<100); Chloride 106 mmol/L (98-107); Cholesterol 127 mg/dL (<200); Estimated GFR 77.04 (mL/min/1.73m2); Glucose 95 mg/dL (74-106); HDL Cholesterol 59 mg/dL (>or=40); Potassium 4.3 mmol/L (3.5-5.1); Sodium 140 mmol/L (136-145); Total Protein 6.3 g/dL (6.4-8.2); Triglyceride 51 mg/dL (<150); Vitamin D 25 Total 33 ng/mL (30-100)
== END 2024-09-21 15:20 | disposition home or self-care (01) ==
LOC: NCHCN 15:19
PROVIDERS: PCP Family Medicine; Visit Provider Family Medicine
DX: I10 Essential (primary) hypertension (principal); E55.9 Vitamin D deficiency, unspecified
CPT/HCPCS: 80053; 80061; 82306

== ENCOUNTER 2024-10-26 16:49 | Outpatient (REF) | payer MEDICARE, SELFPAY ==
--- NOTE | 2024-10-26 10:30 | SKI_PTH ---
PATIENT: Michael Smith LOC: [facility] U#:[id number] AGE/SX: 79/M ROOM: RE10/26/[address]: Amy Arango : 1945 BED: DIS: 10/26/2024 SPEC #: [id number] RECD: 10/26/24 17:33 STATUS: MURPHY RECandida #: [id number] HAZEL: 10/26/24 10:[address]: Amy Arango DEPT: Surgical Specimen RECD BY: Bettye Altman Tissues: 1 - SKIN BIOPSY(SHAVE/PUNCH) Procedures: SKIN LEVEL 4 Comments: [id number]
== END 2024-10-26 16:50 | disposition home or self-care (01) ==
LOC: LBN 16:49
PROVIDERS: PCP Family Medicine; Visit Provider Family Medicine
DX: C44.519 Basal cell carcinoma of skin of other part of trunk (principal)
CPT/HCPCS: 88305